=== PATIENT | male | born 1965 | race Caucasian/White ===

== ENCOUNTER 2019-07-11 08:53 | Outpatient (CLI) | payer OTHER ==
--- NOTE | 2019-07-11 10:41 | CT ---
CT EXAMINATION NECK WITH IV CONTRAST: DATE: 07/11/2019. COMPARISON: None. HISTORY: Swelling of the right neck with painful/tender region "under right jaw". TECHNIQUE: Axial CT imaging at 2 mm intervals from skull base through lung apices with intravenous contrast. Cor onal and sagittal reformatted imaging obtained. FINDINGS: Imaged lung apices are unremarkable. The visualized paranasal sinuses/mastoid air cells are well aerated. The retroantral fat and the parapharyngeal fat is clear bilaterally. The submandibular glands and parotid glands appear unremarkable bilaterally. The floor of mouth, the tongue, the tonsillar pillars, the epiglottis and preepiglottic fat, the hyoid bone, the thyroid cartilage, the thyroid gland, the cricoid cartilage, and the level of the glottis appear grossly unre markable. There is a tiny granuloma in the left upper lobe anteriorly on axial image 127. The vascular structures of the neck appear patent. No lymphadenopathy is evident within the neck. No fluid collection or mass lesion is appreciated. The osseous structures demonstrate multilevel degenerative change within the cervical spine, most pro minent in the region of the left facet joints of the mid cervical spine. No lytic or blastic bone lesion identified. IMPRESSION: No acute findings seen. Transcribed Date/Time: 07/11/2019 11:00 AM
== END 2019-07-11 08:54 | disposition home or self-care (01) ==
LOC: SCSCT 08:53
PROVIDERS: ATTEND Otolaryngology Plastic Surgery within the Head & Neck
DX: R22.1 Localized swelling, mass and lump, neck (principal); R49.0 Dysphonia
CPT/HCPCS: 70491

== ENCOUNTER 2022-04-30 12:23 | Outpatient (CLI) | payer OTHER | END 2022-04-30 12:24 | disposition home or self-care (01) | LOC: RAD 12:23 | PROVIDERS: ATTEND Physician Assistant Medical | DX: R13.10 Dysphagia, unspecified (principal); R05.3 Chronic cough | CPT/HCPCS: 74220 ==

== ENCOUNTER 2022-06-16 11:47 | Outpatient (CLI) | payer OTHER | END 2022-06-16 11:48 | disposition home or self-care (01) | LOC: BICULT 11:47 | PROVIDERS: ATTEND Physician Assistant Medical | DX: K74.60 Unspecified cirrhosis of liver (principal); K76.0 Fatty (change of) liver, not elsewhere classified; R79.89 Other specified abnormal findings of blood chemistry; R93.2 Abnormal findings on diagnostic imaging of liver and biliary tract | CPT/HCPCS: 76705 ==